=== PATIENT | female | born 1985 | race African-American/Black ===

== ENCOUNTER 2017-02-01 02:12 | Emergency (ER) | payer OTHER ==
[~2017-02-01] VITALS: Ht 157.5 cm; Wt 67.6 kg
[~2017-02-01 02:12] MED LIST: BRINTELLIX10 MG PO; BRINTELLIX20 MG PO; FOLIC ACID1 MG PO; NOHOMEMEDICATIONS; NORCO 5-325 TA1 EACH PO; OXYCODONE HCL 55 MG PO; OXYCODONE-ACET1 EACH PO; PERCOCET 5-3251 EACH PO; PERCOCET PO; WELLBUTRIN SR100 MG PO; ZOFRAN ODT4 MG PO
[2017-02-01 02:41] LABS: URINE BILIRUBIN NEGATIVE (Negative); URINE BLOOD 2+ (Negative); URINE COLOR YELLOW; URINE GLUCOSE-RANDOM* NEGATIVE (Negative); URINE KETONES NEGATIVE (Negative); URINE LEUKOCYTES-REFLEX NEGATIVE (Negative); URINE PROTEIN (DIPSTICK) NEGATIVE (Negative); URINE SPECIFIC GRAVITY 1.015 (1.003-1.035); URINE UROBILINOGEN 0.2 E.U./dl (0.2-1.0)
[2017-02-01 02:54] LABS: HEMATOCRIT 32.4 % (37.0-47.0); HEMOGLOBIN 11.3 gm/dL (12.0-15.0); MCH 31.9 pg (26.0-34.0); MCV 91.1 fL (80.0-100.0); PLATELET COUNT 202 thou/uL (150-400); RBC 3.55 mil/uL (4.20-5.00); RDW 16.5 % (10.5-14.5); WBC 15.2 thou/uL (4.0-11.0)
[2017-02-01 02:54] LABS: SQUAMOUS 4-10 Moderate /LPF (0-3)
[2017-02-01 02:55] LABS: CASTS None Seen /LPF (None Seen); CRYSTALS None Seen /LPF (None Seen)
[2017-02-01 02:56] LABS: URINE RBC 0-2 Rare /HPF (0-2); URINE WBC-REFLEX 0-5 Rare /HPF (0-5)
[2017-02-01 02:58] LABS: MANUAL DIFF YES
[2017-02-01 03:03] LABS: CALCIUM 9.3 mg/dL (8.5-10.1); POTASSIUM 3.4 mmol/L (3.5-5.1)
[2017-02-01 03:05] LABS: ABSOLUTE RETIC COUNT 0.2648 10^6/uL; OBSERVED RETIC COUNT 7.43 % (0.6-2.6)
[2017-02-01 03:07] LABS: ALBUMIN 4.2 g/dL (3.4-5.0); TOTAL BILIRUBIN 2.2 mg/dL (<0.1-1.0); TOTAL PROTEIN 7.5 g/dL (6.4-8.2)
[2017-02-01 03:23] LABS: ABSOLUTE NEUTROPHILS 14.1 thou/uL (1.4-8.2); ANISOCYTOSIS 1+; POLYCHROMASIA 1+; TARGET CELLS 2+; TOTAL CELL COUNT 100
[2017-02-01 03:24] LABS: MACROCYTES 1+
[2017-02-01] MEDS ORDERED: ZOFRAN ODT4 MG PO (04:12)
[2017-02-01] MEDS ORDERED: PERCOCET 5-3251 EACH PO (04:12)
== END 2017-02-01 04:38 | disposition home or self-care (01) ==
LOC: ER 02:12
PROVIDERS: Emergency Medicine
DX: R11.2 Nausea with vomiting, unspecified (principal); R19.7 Diarrhea, unspecified; D57.00 Hb-SS disease with crisis, unspecified; Z90.49 Acquired absence of other specified parts of digestive tract

== ENCOUNTER 2017-07-07 01:28 | Emergency (ER) | payer OTHER ==
[~2017-07-07] VITALS: Ht 157.5 cm; Wt 67.1 kg
--- NOTE | ~2017-07-07 | EKG ---
[address] [address] ELECTROCARDIOGRAM REPORT Name: EUGENIA ENGLE Room #: [facility]#: [id number] Admission: 07/07/17 Attend Phys: Discharge: 07/07/17 Date of : 85 Report #: [id number] THIS REPORT FOR: //name// [facility] ED Test Date: 2017-07-07 Test Time: 01:51:42 Pat Name: EUGENIA ENGLE Department: Room: Gender: F Corporate Controller: MAXI : 1985 Requested By: Rosibel Page Order Number: [id number] MD: Andrew De Anda Measurements Intervals [place] Rate: 67 P: 45 IL: 127 QRS: -6 QRSD: 86 T: 17 QT: 383 QTc: 405 Interpretive Statements Sinus rhythm Borderline T wave abnormalities Compared to ECG 03/10/2017 15:27:04 No significant changes Electronically Signed On 07-07-2017 17:54:04 CDT by Andrew De Anda [email or web address] <ELECTRONICALLY SIGNED> By: Andrew De Anda MD, [facility] 07/07/17 1754 0151 0151 Andrew De Anda MD, FACC /EPI
[~2017-07-07 01:28] MED LIST changes: +AUGMENTIN 875-1 EACH PO; +FLAGYL500 MG PO; +HYDROCODONE-AP1 EAC6 PO; +PHENERGAN 25 MG25 M1 PO
[2017-07-07 02:07] LABS: ABSOLUTE NEUTROPHILS 7.2 thou/uL (1.4-8.2); BASOPHILS 1.5 % (0.0-2.0); EOSINOPHILS 0.8 % (0.0-3.0); HEMATOCRIT 30.3 % (37.0-47.0); HEMOGLOBIN 10.5 gm/dL (12.0-15.0); LYMPHOCYTES 42.9 % (24.0-44.0); MCH 31.8 pg (26.0-34.0); MCHC 34.6 g/dL (28.0-37.0); MCV 91.8 fL (80.0-100.0); MONOCYTES 5.2 % (1.0-8.0); PLATELET COUNT 278 thou/uL (150-400); POLYS 49.6 % (36.0-66.0); RDW 16.9 % (10.5-14.5); WBC 14.4 thou/uL (4.0-11.0)
[2017-07-07 02:11] LABS: ANION GAP 10 mmol/L (7-16); BUN 8 mg/dL (7-18); CALCIUM 10.1 mg/dL (8.5-10.1); CHLORIDE 106 mmol/L (98-107); CO2 25 mmol/L (21-32); GLUCOSE 112 mg/dL (74-106); POTASSIUM 3.5 mmol/L (3.5-5.1); SODIUM 141 mmol/L (136-145)
[2017-07-07 02:16] LABS: MANUAL DIFF NO
[2017-07-07 02:20] LABS: TROPONIN-I < 0.04 ng/mL (<0.04-0.07)
== END 2017-07-07 03:00 | disposition home or self-care (01) ==
LOC: ER 01:28
PROVIDERS: Emergency Medicine
DX: D57.00 Hb-SS disease with crisis, unspecified (principal); R07.89 Other chest pain; M54.5 Low back pain; F10.99 Alcohol use, unspecified with unspecified alcohol-induced disorder; Z90.49 Acquired absence of other specified parts of digestive tract; Z98.890 Other specified postprocedural states

== ENCOUNTER 2019-07-02 17:03 | Inpatient (IN) | payer OTHER ==
[~2019-07-02] VITALS: Ht 157.5 cm; Wt 69.6 kg
[~2019-07-02 17:03] MED LIST changes: +CLONAZEPAM 0.50.5 M1 PO; +EFFEXOR XR75 MG PO; +IBUPROFEN 600600 M1 PO; +SENNA-DOCUSATE1 EAC1 PO; +WELLBUTRIN 75 M75 M1 PO
[2019-07-02 17:15] VITALS: BP 120/77
[2019-07-02 17:41] LABS: ABSOLUTE RETIC COUNT 0.1445 10^6/uL; HEMATOCRIT 27.1 % (37.0-47.0); HEMOGLOBIN 9.5 gm/dL (12.0-15.0); MCH 31.2 pg (26.0-34.0); MCHC 34.9 g/dL (28.0-37.0); MCV 89.4 fL (80.0-100.0); OBSERVED RETIC COUNT 4.76 % (0.6-2.6); PLATELET COUNT 319 thou/uL (150-400); RBC 3.03 mil/uL (4.20-5.00); RDW 15.8 % (10.5-14.5); WBC 18.2 thou/uL (4.0-11.0)
[2019-07-02 17:46] LABS: CALCIUM 9.6 mg/dL (8.5-10.1); CREATININE 1.1 mg/dL (0.6-1.0); POTASSIUM 3.8 mmol/L (3.5-5.1)
[2019-07-02 17:52] LABS: ALBUMIN 3.7 g/dL (3.4-5.0); TOTAL BILIRUBIN 1.1 mg/dL (<0.1-1.0); TOTAL PROTEIN 7.4 g/dL (6.4-8.2)
[2019-07-02 18:03] LABS: ABSOLUTE NEUTROPHILS 6.6 thou/uL (1.4-8.2); METAMYELOCYTES 4 %; PLATELET ESTIMATE NORMAL
[2019-07-02] MEDS ORDERED: NORCO 10-325 T1 EACH PO (18:43)
[2019-07-02 21:06] VITALS: BP 108/68
[2019-07-02 21:22] VITALS: BP 122/83
[2019-07-02 21:38] VITALS: BP 143/88
--- NOTE | 2019-07-03 00:59 | NUR ---
PT ARRIVED ON UNIT 2129. PT ALERT AND ORIENTED. ADMISSION COMPLETED. VSS. PAIN MEDS GIVEN. DENIES N/V. ORDERS IMPLEMENTED. CALL LIGHT ADN PERSONAL CECY GONZALEZ. WILL CONTINUE POC UNTIL EOS.
[2019-07-03 03:30] VITALS: BP 124/75
[2019-07-03 05:00] LABS: HEMATOCRIT 26.7 % (37.0-47.0); HEMOGLOBIN 9.2 gm/dL (12.0-15.0); MCH 31.2 pg (26.0-34.0); MCHC 34.6 g/dL (28.0-37.0); MCV 90.1 fL (80.0-100.0); RBC 2.96 mil/uL (4.20-5.00); RDW 15.5 % (10.5-14.5); WBC 20.5 thou/uL (4.0-11.0)
[2019-07-03 05:16] LABS: CALCIUM 9.2 mg/dL (8.5-10.1); CREATININE 0.8 mg/dL (0.6-1.0)
[2019-07-03 07:06] VITALS: BP 114/82
--- NOTE | 2019-07-03 08:20 | NUR ---
RECIEVED PT CARE APPROX 0700. A/O. RESTING IN BED. C/O PAIN MANAGED BY MEDS ORDERED- SEE MAR. NO OTHER CONCERNS AT THIS TIME. WILL CONT. TO MONITOR.
--- NOTE | 2019-07-03 11:43 | EKG ---
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 : 1985 Requested By: Axel Burton Order Number: [id number] MD: Jaleel Samayoa Measurements Intervals [place] Rate: 77 P: 41 ID: 132 QRS: -41 QRSD: 90 T: 27 QT: 355 QTc: 402 Interpretive Statements Sinus rhythm Left axis deviation Borderline T abnormalities, inferior leads Baseline wander in lead(s) II,III,aVL,aVF,V2,V3 Compared to ECG 07/07/2017 01:51:42 Left-axis deviation now present T-wave abnormality still present Electronically Signed On 07-03-2019 11:43:22 CDT by Jaleel Samayoa [email or web address] <ELECTRONICALLY SIGNED> By: Jaleel Samayoa MD 07/03/19 1143 1738 1738 Jaleel Samayoa MD /EPI
[2019-07-03 13:33] LABS: URINE BILIRUBIN NEGATIVE (Negative); URINE BLOOD 2+ (Negative); URINE CLARITY CLEAR; URINE COLOR YELLOW; URINE GLUCOSE-RANDOM* NEGATIVE (Negative); URINE KETONES NEGATIVE (Negative); URINE LEUKOCYTES-REFLEX NEGATIVE (Negative); URINE NITRITE-REFLEX NEGATIVE (Negative); URINE PROTEIN (DIPSTICK) NEGATIVE (Negative); URINE SPECIFIC GRAVITY <= 1.005 (1.005-1.035); URINE UROBILINOGEN 0.2 E.U./dl (0.2-1.0)
[2019-07-03 13:42] LABS: BACTERIA-REFLEX 1-9 Few /HPF (None Seen); CASTS None Seen /LPF (None Seen); CRYSTALS None Seen /LPF (None Seen); SQUAMOUS 0-3 Few /LPF (0-3); URINE RBC 0-2 Rare /HPF (0-2); URINE WBC-REFLEX None Seen /HPF (0-5)
[2019-07-03 15:45] VITALS: BP 123/81
[2019-07-03 19:45] VITALS: BP 135/93
--- NOTE | 2019-07-03 21:58 | NUR ---
ASSESSMENT COMPLETED. PT IS ALERT AND ORIENTED. SBA TO THE BATHROOM. CONTINUES TO HAVE GENERALISED PAIN.AEBRILE.REPORTS POOR APETITE. DENIES N/V.PLAN TO CONTINUE WITH AGRESSIVE PAIN MGT AND IV HYDRATION. SHE MAKES NEEDS KNOWN. CALL LIGHT WITHIN REACH.WILL CONTINUE WITH POC TILL EOS.
[2019-07-04 05:22] LABS: HEMATOCRIT 23.1 % (37.0-47.0); HEMOGLOBIN 8.1 gm/dL (12.0-15.0); MCH 31.5 pg (26.0-34.0); RBC 2.57 mil/uL (4.20-5.00); RDW 16.3 % (10.5-14.5); WBC 17.3 thou/uL (4.0-11.0)
[2019-07-04 05:30] VITALS: BP 128/91
[2019-07-04 05:51] LABS: % SATURATION 27 % (20-39); IRON 51 ug/dL (50-170); TIBC 190 ug/dL (250-450)
--- NOTE | 2019-07-04 07:49 | HC ---
[facility] [place] [address] CONSULTATION Name: ONIELEUGENIA Abbey Room #: 422-P ADM IN M.R.#: [id number] Admission: 07/02/19 Attend Phys: Peggy Kelly Discharge: Date of : 85 Report #: [id number] THIS REPORT FOR: //name// CC: Nayeli Nur MD DATE OF SERVICE: 07/03/2019 REQUESTING PHYSICIAN: Vladimir Castaneda MD REASON FOR CONSULTATION: Sickle cell. HISTORY OF PRESENT ILLNESS: The patient is a 33-year-old -[place]est[place] female who I have known for probably at least 3-4 years, who has a history of sickle cell disease. She gets admitted to the hospital about twice a year. About 3 or 4 days ago, she had been over at [facility] with a sore throat, was found to have strep throat, was given antibiotic. It was slightly better, but the last day or two she has been having progressive diffuse pains consistent with her sickle cell. Here in the hospital, her retic count is not much higher than usual, usually when she is having a sickle crisis, up around 200-300, at this time it is only around 144 and also her total bilirubin is up a little bit higher than normal, but usually when she has a sickle cell, it is up around 2 or 3, at this time it is about 1.1. Hemoglobin is 9.2. White count 20.5, which is slightly high for her. Platelets are 299. Rest of her electrolytes are unremarkable. The patient has mild headache, does feel that hydrocodone disagrees with her. Bowels have been a little bit slow. No skin rash. No dysuria. Rest of family has been healthy. 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 She had been in [employer]. Now, she says she is studying business. Nonsmoker, no significant alcohol. I do not believe she has done any street drugs. MEDICATIONS: At home, I believe, had included oxycodone, ibuprofen, Zofran when needed, sennosides and also Wellbutrin 75 mg daily. Current medications include Lovenox 40 subcutaneously; folic acid 400 mcg daily; oxycodone 1 for mild pain, 2 for more moderate pain; ceftriaxone 2 g daily; Senokot-S daily; Zofran p.r.n.; lorazepam p.r.n., promethazine p.r.n., hydromorphone p.r.n.; IV fluids 1000 mL per 8 hours. PAST HISTORY: As mentioned, is notable for the sickle cell. Also, history of cholecystectomy and appendectomy. FAMILY HISTORY: Mother from complications of sickle cell. She has a [facility] [address] [place] [address] CONSULTATION Name: EUGENIA ENGLE Abbey Room #: 422-P [facility] IN M.R.#: [id number] Admission: 07/02/19 Attend Phys: Peggy Kelly Discharge: Date of : 85 Report #: [id number] brother and sister. I do not believe she has children. PHYSICAL EXAMINATION: GENERAL: The patient appears her stated age. VITAL SIGNS: Height is 5 feet 2 inches, which is 157.5 cm. Weight is 153.4 pounds, which is 69.6 kilograms. She has 99.1 temperature orally, which is slightly elevated. Pulse is 107, blood pressure 114/82, O2 sat 98%, respirations 18. MOOD: She is alert and pleasant, though somewhat quiet. LUNGS: Appear to be clear. HEART: Regular rate. HEENT: Oropharynx perhaps slightly red. LYMPHATICS: No enlarged lymph nodes in the supraclavicular, cervical, axillary, inguinal or epidural region. ABDOMEN: Soft, without masses. EXTREMITIES: Without clubbing, cyanosis or edema. ASSESSMENT AND PLAN: 1. Sickle cell pain and crisis reported by the patient. Lab tests do not suggest a strong or severe crisis and does not appear to have any acute chest syndrome or aplastic crisis. Agree with use of fluids and cautious opioids. The patient in the past has not had enough crisis per year to suggest Hydrea. She does take folic acid, did mention the possibility of starting L-glutamine as an outpatient should be around 0.3 g/kg per dose b.i.d., which should be around 20-30 g b.i.d., Discussed with the patient. 2. Health maintenance. Agree with Lovenox. We will also check iron and vitamin D level. 3. Possible strep throat. Continue ceftriaxone. 4. Anemia, not low enough to transfuse. We will follow with you. <ELECTRONICALLY SIGNED> By: Casa Fang MD 07/04/19 0749 0856 [id number] Casa Fang MD /nt
[2019-07-04 07:50] VITALS: BP 130/90
--- NOTE | 2019-07-04 08:09 | NUR ---
ASSESMENT COMPLETED. VSS. A/O/TEARFUL THIS AM. PAIN PARTIALLY RELIEVED BY MEDS ORDERED. NO NOTED SOA. NO NV. PT RESTING IN BED AT THIS TIME. NO OTHER CONCERNS VOICED. WILL CONT. TO MONITOR.
[2019-07-04 08:21] LABS: ALBUMIN 2.9 g/dL (3.4-5.0); CALCIUM 8.6 mg/dL (8.5-10.1); CREATININE 0.8 mg/dL (0.6-1.0); POTASSIUM 3.6 mmol/L (3.5-5.1); TOTAL BILIRUBIN 1.2 mg/dL (<0.1-1.0); TOTAL PROTEIN 6.9 g/dL (6.4-8.2)
[2019-07-04 08:29] LABS: ABSOLUTE RETIC COUNT 0.1781 10^6/uL; OBSERVED RETIC COUNT 6.89 % (0.6-2.6)
[2019-07-04 16:00] VITALS: BP 125/77
[2019-07-04 19:21] VITALS: BP 118/82
--- NOTE | 2019-07-04 19:25 | NUR ---
NO CHANGE SINCE AM ASSESSIRIA. PAIN MORE CONTROLLED TODAY.
--- NOTE | 2019-07-05 01:30 | NUR ---
ASSUMD PT CARE 1899. PT ALERT AND ORIENTED. REASSESSMENT COMPLETE. VSS. IV DRESSING C/D/I. REPORTS PAIN, SEE [place] ERVIN N/V. SBA TO BATHROOM USING WALKER, IS PAINFUL ESPECIALLY IN L LEG. WORKING TOWARD POC. CALL LIGHT AND PERSONAL BELONINGS WITHIN REACH. FAMILY AT BEDSIDE. WILL CONTINUE POC UNTIL EOS.
[2019-07-05 04:23] VITALS: BP 117/70
[2019-07-05 05:54] LABS: ABSOLUTE RETIC COUNT 0.1763 10^6/uL; HEMATOCRIT 22.4 % (37.0-47.0); HEMOGLOBIN 7.6 gm/dL (12.0-15.0); MCH 30.4 pg (26.0-34.0); MCHC 33.8 g/dL (28.0-37.0); OBSERVED RETIC COUNT 7.1 % (0.6-2.6); RBC 2.48 mil/uL (4.20-5.00); RDW 16.2 % (10.5-14.5); WBC 16.9 thou/uL (4.0-11.0)
[2019-07-05 07:47] VITALS: BP 116/67
--- NOTE | 2019-07-05 15:13 | NUR ---
PT ADMITTED RELATED TO GENERALIZED PAIN. CM REVIEWED CHART AND SPOKE WITH CARE TEAM. PT IS A&O X4. CM ROLE INTRODUCED. PT INDICATED SHE LIVES IN A HOUSE WITH HER SON WITH NO STEPS TO ENTER AND NO STEPS INSIDE. 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 PT INDICATED SHE PLANS TO RETURN HOME ONCE MEDICALLY STABLE. CM TO FOLLOW INDICATED WITH DC PLANNING.
[2019-07-05 16:52] VITALS: BP 102/65
[2019-07-05 19:43] VITALS: BP 123/80
--- NOTE | 2019-07-06 05:54 | NUR ---
ASSUMED CARE AROUND 1899. AXOX4. PERSISTENT L SIDED GENERALIZED PAIN. MEDICATED PER MD ORDER. NO S/S ACUTE DISTRESS NOTED OR REPORTED AT THIS TIME. WILL CONT TO MONITOR FOR ANY CHANGES IN CONDITION.
[2019-07-06 08:24] VITALS: BP 124/88
[2019-07-06] MEDS ORDERED: CEFUROXIME250 MG PO (08:26)
[2019-07-06] MEDS ORDERED: PERCOCET 5-3251 EACH PO (08:26)
[2019-07-06 11:48] VITALS: BP 124/88
--- NOTE | 2019-07-06 12:27 | NUR ---
DC PRDERS RECEIVED. DC INSTRUCTIONS, F/U APPOINT AND SCRIPTS REVIEWED WITH PT. IV REMOVED FROM R AC. VOLUNTEER ESCORTED PT TO MAIN ENTRANCE.
== END 2019-07-06 17:33 | disposition home or self-care (01) | DRG 811 ==
LOC: ER 17:03 → 4E 20:56 → EROBS 20:56 → 4E 21:32 → ENTRNSPT 07-06 12:25 → EDTRNSPTSTS 07-06 12:26 → 4E 07-06 17:33
PROVIDERS: Internal Medicine Hematology & Oncology; Nurse Practitioner; Physician Assistant; ADMIT Hospitalist
DX: D57.00 Hb-SS disease with crisis, unspecified (principal); N17.0 Acute kidney failure with tubular necrosis; R30.0 Dysuria; Z90.49 Acquired absence of other specified parts of digestive tract; Z83.2 Family history of diseases of the blood and blood-forming organs and certain disorders involving the immune mechanism; Z79.899 Other long term (current) drug therapy
CPT/HCPCS: 10084

== ENCOUNTER 2019-11-15 11:26 | Emergency (ER) | payer OTHER ==
[~2019-11-15] VITALS: Ht 157.5 cm; Wt 65.8 kg
[~2019-11-15 11:26] MED LIST changes: +CEFUROXIME250 MG PO; +NORCO 10-325 T1 EACH PO
[2019-11-15 11:45] LABS: URINE BILIRUBIN NEGATIVE (Negative); URINE BLOOD 1+ (Negative); URINE CLARITY CLEAR; URINE COLOR YELLOW; URINE GLUCOSE-RANDOM* NEGATIVE (Negative); URINE KETONES NEGATIVE (Negative); URINE LEUKOCYTES-REFLEX NEGATIVE (Negative); URINE NITRITE-REFLEX NEGATIVE (Negative); URINE PROTEIN (DIPSTICK) NEGATIVE (Negative); URINE SPECIFIC GRAVITY 1.025 (1.005-1.035); URINE UROBILINOGEN 0.2 E.U./dl (0.2-1.0)
[2019-11-15 11:54] LABS: ABSOLUTE NEUTROPHILS 7.5 thou/uL (1.4-8.2); BASOPHILS 0.6 % (0.0-2.0); EOSINOPHILS 0.4 % (0.0-3.0); HEMATOCRIT 32.4 % (37.0-47.0); HEMOGLOBIN 11.1 gm/dL (12.0-15.0); LYMPHOCYTES 33.7 % (24.0-44.0); MCH 32.1 pg (26.0-34.0); MCHC 34.4 g/dL (28.0-37.0); MCV 93.4 fL (80.0-100.0); MONOCYTES 5.9 % (1.0-8.0); PLATELET COUNT 262 thou/uL (150-400); POLYS 59.4 % (36.0-66.0); RBC 3.47 mil/uL (4.20-5.00); RDW 15.5 % (10.5-14.5); WBC 12.7 thou/uL (4.0-11.0)
[2019-11-15 11:57] LABS: BACTERIA-REFLEX 1-9 Few /HPF (None Seen); CASTS None Seen /LPF (None Seen); CRYSTALS None Seen /LPF (None Seen); SQUAMOUS >10 Many /LPF (0-3); URINE RBC None Seen /HPF (0-2); URINE WBC-REFLEX 0-5 Rare /HPF (0-5)
[2019-11-15 12:19] LABS: CALCIUM 10.4 mg/dL (8.5-10.1)
[2019-11-15] MEDS ORDERED: NORCO 5-325 TA1 EAC1 PO (13:49)
[2019-11-15] MEDS ORDERED: IBUPROFEN 800800 M1 PO (13:49)
[2019-11-15] MEDS ORDERED: FLAGYL500 M1 PO (14:00)
[2019-11-15 14:10] VITALS: BP 107/67
== END 2019-11-15 14:28 | disposition home or self-care (01) ==
LOC: ER 11:26
PROVIDERS: Nurse Practitioner Family
DX: N76.0 Acute vaginitis (principal); B96.89 Other specified bacterial agents as the cause of diseases classified elsewhere; N72 Inflammatory disease of cervix uteri; R19.05 Periumbilic swelling, mass or lump; Z90.49 Acquired absence of other specified parts of digestive tract; N83.209 Unspecified ovarian cyst, unspecified side

== ENCOUNTER 2020-01-02 00:38 | Inpatient (IN) | payer OTHER ==
[~2020-01-02] VITALS: Ht 157.5 cm; Wt 68.1 kg
[2020-01-02] VITALS (7 sets, daily range): BP systolic 113–155; BP diastolic 64–111
--- NOTE | ~2020-01-02 | HC ---
[facility] [place] [address] CONSULTATION Name: EUGENIA ENGLE Room #: 356-P ADM IN M.R.#: [id number] Admission: 01/02/20 Attend Phys: Peggy Kelly Discharge: Date of : 85 Report #: [id number] THIS REPORT FOR: cc: [facility] - Clinic physician unknown [facility] - Clinic physician unknown Renetta Calderon MD ~ CC: VIJAYA Kelly DATE OF SERVICE: 01/05/2020 REASON FOR CONSULTATION: Acute kidney injury. REASON FOR PRESENTATION: Sickle cell pain and shortness of breath. HISTORY OF PRESENT ILLNESS: The details of the history were obtained from the medical chart and the patient's father. The patient is currently having major mental status issues and is not able to provide me with the details. The patient was admitted on the with what seems to be sickle cell pain. She was also having major issues with her breathing. She has significant leukocytosis. The patient's creatinine on presentation was within normal range. Specifically, her creatinine was 0.7. She went on for a few days without any labs until today. Creatinine was found to be significantly elevated at 4.7. She had significantly elevated liver enzymes, LDH, albumin. She is currently being followed by Hematology/Oncology service along with the ID service to cover her for potential infectious process. The patient is having major mental issues this morning and is not able to talk to me. She is confused. She appeared very lethargic. She has never been hypotensive. She did not receive nonsteroidal anti-inflammatory medication. CT chest was done without contrast. PAST MEDICAL HISTORY: 1. Sickle cell disease with repeated episodes of hospitalization due to sickle cell crises almost twice a year. 2. Appendectomy. 3. Hernia surgery. FAMILY HISTORY: Mom has sickle cell disease. ALLERGIES: None. MEDICATIONS: 1. Listed amongst her outpatient medications, hydrocodone, and ibuprofen. 2. Currently, she is maintained on azithromycin, folic acid, melatonin, IV fluid. REVIEW OF SYSTEMS: This is obtained from the father as she is not able to [facility] [address] [place] [address] CONSULTATION Name: ONIELEUGENIA Room #: 356-P [facility] IN M.R.#: [id number] Admission: 01/02/20 Attend Phys: Peggy Kelly Discharge: Date of : 85 Report #: [id number] provide me with history. GENERAL: Significant for weakness and lethargy. CARDIOVASCULAR: Significant for shortness of breath and chest pain. PULMONARY: Significant for extreme shortness of breath and cough. GASTROINTESTINAL: No nausea or vomiting. GENITOURINARY: No frequency, no urgency. MUSCULOSKELETAL: Sickle cell pain. PHYSICAL EXAMINATION: GENERAL: Today, she is confused. VITAL SIGNS: Pulse rate is 124. Temperature 36.6, blood pressure is 136/85. HEAD AND NECK: No jugular venous distention, extremely tachypneic with usage of accessory muscles. CARDIOVASCULAR: Tachycardic with no rub. Systolic murmur is present. CHEST: Very limited air entry bilaterally with crackles. ABDOMEN: Soft, nontender. EXTREMITIES: Lower extremities, +2 edema. LABORATORY DATA: Laboratory values reviewed. White blood cell count is 37.9, hemoglobin is 7.1 and platelet is 79. Sodium is 130, potassium is 4.3, BUN 70, and creatinine is 4.7. Elevated AST at 1146, ALT is elevated at 292. Alkaline phosphatase is elevated at 340. LDH is elevated at 4,257. IMAGING: Chest x-ray reviewed. Abdominal ultrasound reviewed. ASSESSMENT/IMPRESSION AND PLAN: 1. Acute kidney injury in a patient with sickle cell disease. 2. Severe ongoing pulmonary issues with what seems to be pneumonitis. 3. Sickle cell anemia. 4. Elevated liver enzyme. 5. Potential acute chest syndrome. 6. This is a rather rapid and severe acute kidney injury with a wide differential diagnosis including acute tubular necrosis, thromboembolic phenomena, sickle cell crises related acute kidney injury. I will discuss further plans with the patient's advanced developer and hospitalist. 7. At this point, the mainstay of treatment is treatment for her sickle cell pain, potential pneumonitis, and sickle cell crisis. 8. Continue IV fluid. 9. Avoid diuresis at this point. 10. Continue to address her ongoing oxygen needs and demands. 11. Will need [place] [address] CONSULTATION Name: EUGENIA ENGLE Room #: 356-P ADM IN M.R.#: [id number] Admission: 01/02/20 Attend Phys: Peggy Kelly Discharge: Date of : 85 Report #: [id number] 12. Given the severity of her disease, she will likely need to be transferred to a tertiary care center. By: 2 0833 Renetta Calderon MD /nt
[~2020-01-02 00:38] MED LIST changes: +FLAGYL500 M1 PO; +IBUPROFEN 800800 M1 PO; +NORCO 5-325 TA1 EAC1 PO
[2020-01-02 01:09] LABS: URINE BILIRUBIN NEGATIVE (Negative); URINE BLOOD NEGATIVE (Negative); URINE CLARITY CLEAR; URINE COLOR YELLOW; URINE GLUCOSE-RANDOM* NEGATIVE (Negative); URINE KETONES NEGATIVE (Negative); URINE LEUKOCYTES-REFLEX NEGATIVE (Negative); URINE NITRITE-REFLEX NEGATIVE (Negative); URINE PROTEIN (DIPSTICK) NEGATIVE (Negative)
[2020-01-02 01:11] LABS: HEMATOCRIT 28.9 % (37.0-47.0); MCH 32.3 pg (26.0-34.0); MCHC 34.4 g/dL (28.0-37.0); PLATELET COUNT 262 thou/uL (150-400); RBC 3.08 mil/uL (4.20-5.00); RDW 15.7 % (10.5-14.5); WBC 18.9 thou/uL (4.0-11.0)
[2020-01-02 01:14] LABS: ABSOLUTE RETIC COUNT 0.1745 10^6/uL; OBSERVED RETIC COUNT 5.74 % (0.6-2.6)
[2020-01-02 01:23] LABS: CALCIUM 9.2 mg/dL (8.5-10.1); CREATININE 0.7 mg/dL (0.6-1.0)
[2020-01-02 01:28] LABS: TOTAL BILIRUBIN 1.5 mg/dL (<0.1-1.0); TOTAL PROTEIN 7.8 g/dL (6.4-8.2)
[2020-01-02 01:29] LABS: POTASSIUM 3.7 mmol/L (3.5-5.1)
[2020-01-02 01:34] LABS: ABSOLUTE NEUTROPHILS 5.7 thou/uL (1.4-8.2); METAMYELOCYTES 1 %
[2020-01-02 01:35] LABS: POIKILOCYTOSIS 1+; POLYCHROMASIA 2+; TARGET CELLS 2+
--- NOTE | 2020-01-02 02:57 | NUR ---
FIRST ATTEMPT AT REPORT. TOM IS SUPPOSED TO CALL RIGHT BACK
--- NOTE | 2020-01-02 06:49 | NUR ---
Pt arrived from the ER at about 0330. pt a&ox4. pt had recieved iv pain med right before she was sent up, but she came up c/o of excrotiating pain that wasn't relieved with the med. PAYABLE MANAGER Lilibeth went in and saw pt and ordered more pain meds. meds given with partial relief. abx and ivf started. urine sample collected and sent to lab, awaiting results. v/s stable. no s/s of distress. will report off to day shift
--- NOTE | 2020-01-02 16:55 | NUR ---
met with patient who is groggy from pain medication. Patient lives with child in home. She has health insurance. 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 Casemgt following for dc needs.
--- NOTE | 2020-01-02 19:27 | NUR ---
O2 sat dropped to 70% on room air, 2L nasal cannual administrated, O2 back to normal. Dr. Kelly reported. NS discontinued, cxy stat order given by Dr. Hester. Night nurse is aware.
--- NOTE | 2020-01-03 02:36 | NUR ---
PT IS A/O X4.PT C/O PAIN RATING 9 TO 10/10.PAIN IS BEING MANAGED WITH HYDROMORPHONE Q2H WITH LITTLE OR NO RELIEF.PT IS UP TO BSC WITH ASSIST X1.PT IS ON 2L OF O2 NASAL CANULA.PT IS PENDING SPUTUM COLLECTION FOR SPUTUM CULTURE.WILL CONTINUE TO MONITOR POC
[2020-01-03 05:58] LABS: ABSOLUTE RETIC COUNT 0.1978 10^6/uL; OBSERVED RETIC COUNT 7.85 % (0.6-2.6)
[2020-01-03 06:00] LABS: HEMATOCRIT 22.9 % (37.0-47.0); MCHC 34.8 g/dL (28.0-37.0); RBC 2.48 mil/uL (4.20-5.00); RDW 17.3 % (10.5-14.5); WBC 32.9 thou/uL (4.0-11.0)
[2020-01-03 06:08] LABS: HEMOGLOBIN 7.9 gm/dL (12.0-15.0)
[2020-01-03 06:34] LABS: ALBUMIN 3.5 g/dL (3.4-5.0); DIRECT BILIRUBIN 0.3 mg/dL (<0.1-0.2); TOTAL PROTEIN 7.4 g/dL (6.4-8.2)
--- NOTE | 2020-01-03 07:12 | HC ---
[facility] [place] [address] CONSULTATION Name: EUGENIA ENGLE Room #: 456-P ADM IN M.R.#: [id number] Admission: 01/02/20 Attend Phys: Peggy Kelly Discharge: Date of : 85 Report #: [id number] THIS REPORT FOR: cc: [facility] - Clinic physician unknown [facility] - Clinic physician unknown Casa Fang MD ~ CC: Dr. Nayeli Eisenberg [facility] unknown Peggy Kelly MD DATE OF SERVICE: 01/02/2020 REASON FOR CONSULTATION: History of sickle cell disease. HISTORY OF PRESENT ILLNESS: The patient is a very pleasant 34-year-old female who I had last seen in the hospital in June. I do not think I had seen her in the clinic since then. She has history of sickle cell disease. She usually gets admitted to the hospital, maybe about twice a year. She had been doing well, but about a week ago developed a cough and it was mild and went to [facility] ER. They did not suggest any specific medications. Unfortunately, she has recently been running a fever. She says to 102 or slightly higher. Also, greenish phlegm. Denies any headache, mouth sores, sinus drainage, spitting up any blood. Also, during the same respiratory illness began having more pain. Usually her sickle pain is at arms. This was in arms, legs, back, multiple places. She does not feel extremely short of breath. She is a little bit nauseous she thinks maybe from some pain medicines. Prior to the admission, bowels were moving, maybe had a little bit of dysuria last week that had been cleared. No skin rashes. No bug bites, no one else sick around her. PAST MEDICAL HISTORY: Notable for the sickle trait, history of cholecystectomy and appendectomy in the past. 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 I do not think she is in school this semester. Nonsmoker, no significant alcohol, no street drugs. FAMILY HISTORY: Mother from complications of sickle cell, has a brother and sister. I do not believe she has any children. MEDICATIONS: At this time in the hospital currently include azithromycin IV, ceftriaxone IV, Lovenox 40 mg at bedtime. I added folic acid 1 mg daily. She has p.r.n.'s for hydromorphone and hydrocodone and melatonin and Benadryl and did receive Toradol in the ER. PHYSICAL EXAMINATION: [facility] [address] [place] [address] CONSULTATION Name: EUGENIA ENGLE Room #: 456-P [facility] IN [facility]#: [id number] Admission: 01/02/20 Attend Phys: Peggy Kelly Discharge: Date of : 85 Report #: [id number] GENERAL: The patient appears her stated age. Her mood is alert and pleasant, though slightly anxious. VITAL SIGNS: Height is 5 feet 2, 157.5 cm, weight 150 pounds or 68.1 kilograms. Here, she has been afebrile. Current temperature 97.8, pulse 66, respirations 12, blood pressure 142/97, O2 sat 98%. She appears slightly stressed by having pain that seems to be all over. NEUROLOGIC: Face is symmetrical, moving all extremities. Speech and thought pattern normal. LYMPHATICS: No enlarged lymph nodes in the supraclavicular, cervical, axillary or inguinal region. ABDOMEN: Soft, without masses. Slightly obese. EXTREMITIES: Without clubbing or cyanosis. SKIN: Notable for several tattoos. No unusual ecchymosis. LAB: Notable for a total bili of about 1.5, which is a little bit above usual. Note that during some of her crisis she has been up in the 2.2-2.4 range. Transaminases normal. LDH not drawn, but will be drawn. Iron panel back in June had been unremarkable. White count this admit 18.9, which is a little bit higher than her baseline around 12. Hemoglobin 10. Note that in the past she has ran between 7.6 and up to 11.3. Usually hangs around 8 or 9. MCV has been stable, usually around 90-94; platelets 262, which she usually runs between 218 and 319. Did have 1 metamyelocyte this time suggesting a stressed bone marrow. Absolute retic count at this time is 0.174. Note that she has been as high as 0.29, 0.8, and 0.3 equivalent in the past. Radiologically, she had a chest x-ray, which shows patchy opacities in the right middle lobe and right lower lobe consistent with developing pneumonia and mild vascular congestion. ASSESSMENT AND PLAN: 1. Sickle cell anemia and sickle cell crisis, total bilirubin and reticulocyte count slightly up and also the patient has pneumonia on x-ray. We will add folate. Continue fluids, analgesia. We will also add oxygen. Would consider l-glutamine as an outpatient 20 g b.i.d. in liquid. ____ aplastic crisis or acute chest syndrome. Would consider flu vaccine and also Haemophilus influenza and pneumococcal vaccines sometime in the near future. 2. Sickle pain, may need to consider slightly higher doses of opiates. Continue oxygen and air ____. 3. Bronchitis, early pneumonia. Continue Rocephin and Zithromax. Cultures pending. 4. Health maintenance. Agree with Lovenox and encourage ambulation. We will follow with you. <ELECTRONICALLY SIGNED> By: Casa Fang MD 01/03/20 0712 0756 0913 Casa Fang MD /nt
[2020-01-03 08:34] VITALS: BP 110/79
[2020-01-03 15:38] VITALS: BP 117/87
[2020-01-03 19:18] VITALS: BP 110/82
--- NOTE | 2020-01-03 21:45 | NUR ---
PATIENT IS SEDATED BUT ORIENTED AND BEING MANAGED WELL BY IV PAIN MED. SHE HAS BEEN ENCOURAGED TO TAKE PO INTAKE. FAMILY AT BEDSIDE THE ENTIRE DAY AND RESERVATION MANAGER AND CALLED SEVERAL TIMES TO GET STATUS OF PATIENT. PATIENT CONTINUES ON O2 NC.
[2020-01-04 00:16] VITALS: BP 119/82
[2020-01-04 04:30] VITALS: BP 121/84
--- NOTE | 2020-01-04 04:36 | NUR ---
ASSUMED PT CARE AROUND 1930. NOTED WITH TACHYCARDIA AND DECREASED PULSE O2. PLACED ON 5LMP O2 AND ABNORMAL VS REPORTED TO MYESHA BARNARD HEALTH AND SAFETY ADVISOR FOR . NEW ORDER FOR EKG RECIEVED AND EKG REVEALED SINUS TACHYCARDIA. NNO AFTER EKG. PT UNABLE TO VOID THIS AM. TAKEN TO BSC X3 IN 60MINS, UNABLE TO VOID. BALDDER SCAN REVEALED URINE RESIDUAL AT 347. CALLED MYESHA BARNARD AND OBTAINED AN ORDER TO STRAIGHT CATH PT ONETIME AND REPEAT BALDDER SCAN IN 6HR. 400CC OUT WITH STRAIGHT CATH. WILL CONT TO MONITOR FOR ANY CHANGES IN CONDITION.
[2020-01-04 06:30] LABS: MCV 92.7 fL (80.0-100.0); RDW 17.3 % (10.5-14.5)
[2020-01-04 06:34] LABS: ABSOLUTE RETIC COUNT 0.1532 10^6/uL; HEMOGLOBIN 6.6 gm/dL (12.0-15.0); MCHC 33.5 g/dL (28.0-37.0); OBSERVED RETIC COUNT 7.24 % (0.6-2.6); RBC 2.12 mil/uL (4.20-5.00)
[2020-01-04 06:37] LABS: HEMATOCRIT 19.6 % (37.0-47.0); WBC 48.9 thou/uL (4.0-11.0)
[2020-01-04 06:55] LABS: ALBUMIN 3.2 g/dL (3.4-5.0); DIRECT BILIRUBIN 0.5 mg/dL (<0.1-0.2); TOTAL PROTEIN 6.9 g/dL (6.4-8.2)
[2020-01-04 07:36] VITALS: BP 136/104
--- NOTE | 2020-01-04 08:31 | EKG ---
[facility] [place] [address] ELECTROCARDIOGRAM REPORT Name: EUGENIA ENGLE Room #: 356- ADM IN M.R.#: [id number] Admission: 01/02/20 Attend Phys: Peggy Kelly Discharge: Date of : 85 Report #: [id number] THIS REPORT FOR: cc: [facility] - Clinic physician unknown [facility] - Clinic physician unknown Jaleel Samayoa MD ~ THIS REPORT FOR: //name// [facility] Test Date: 2020-01-03 Test Time: 21:45:44 Pat Name: EUGENIA ENGLE Department: Room: [facility] Gender: F 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: 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 BANKS : 1985 Requested By: Rehana Ann Order Number: [id number] MD: Jaleel Samayoa Measurements Intervals [place] Rate: 126 P: 55 LA: 119 QRS: 208 QRSD: 90 T: 9 QT: 291 QTc: 422 Interpretive Statements Sinus tachycardia Ventricular premature complex Right axis deviation Low voltage, precordial leads Compared to ECG 07/02/2019 17:38:25 Electronically Signed On 01-04-2020 8:30:54 SACK DEPARTMENT SUPERVISOR by Jaleel Samayoa [email or web address] <ELECTRONICALLY SIGNED> By: Jaleel Samayoa MD 01/04/20 0830 44 44 Jaleel Samayoa MD /EPI
--- NOTE | 2020-01-04 10:46 | NUR ---
PATIENT TRANSFER FROM AT 0720. ALERT TO SELF, LETHARGIC. ON 5L/NC. HR 115/M. MULTI CONSULTS CALLED. BLADDER SCAN 81ML. WILL TRANSFUTION ONE UNIT RBC. IVTEAM INSERT PICC LINE NOW.
[2020-01-04 12:59] VITALS: BP 118/97; BP 129/94
--- NOTE | 2020-01-04 13:46 | NUR ---
CONSULTED TO PLACE A PICC FOR A PATIENT NEEDING ADDITIONAL ACCES. ORDER AND CONSENT NOTED. THE PROCEDURE WELL BENIFITS AND RISKS DISCUSSED WITH THE PATIENT AND SHE VERBALIZED UNDERSTANDING. THE RIGHT UPPER ARM BRACHIAL WAS WIDLEY PATENT. A #4F DOUBLE LUMEN POWER PICC WAS PLACED PER HOSPITAL POLICY AFTER A BEDSIDE TIMEOUT WAS COMPLETED. LINE WAS TRIMMED TO 36CM AND ADVANCED WITHOUT DIFFICULTY. A STAT CHEST XRAY NOTED AND LINE WITHDREW 2 CM. 2ND XRAY LINE WAS CONFIRMED AT THE [facility]. LINE RELEASED FOR USE
[2020-01-04 15:40] VITALS: BP 118/97
--- NOTE | 2020-01-04 18:37 | NUR ---
Pt now on 3W. She is getting blood today and ct chest. Pain mngt ongoing. Will continue to follow should dc needs arise.
[2020-01-04 19:11] VITALS: BP 130/99
[2020-01-05 00:38] VITALS: BP 149/92
[2020-01-05 01:37] VITALS: BP 129/70
[2020-01-05 02:20] LABS: HEMATOCRIT 21.3 % (37.0-47.0); HEMOGLOBIN 7.1 gm/dL (12.0-15.0); MCH 30.6 pg (26.0-34.0); MCHC 33.5 g/dL (28.0-37.0); MCV 91.5 fL (80.0-100.0); OBSERVED RETIC COUNT 3.61 % (0.6-2.6); RBC 2.33 mil/uL (4.20-5.00); RDW 17.2 % (10.5-14.5); WBC 37.9 thou/uL (4.0-11.0)
[2020-01-05 02:31] LABS: INR 1.1; PROTIME 11.4 Seconds (9.3-11.4)
[2020-01-05 02:42] LABS: BE(vivo) -8.8 mmol/L (-2 to +3); HCO3 14.7 mmol/L (22.0-26.0); PCO2 23.9 mmHg (35.0-45.0); PO2 68.7 mmHg (80.0-100.0); pH 7.408 (7.360-7.450); sO2 94.3 % (92.0-98.0)
[2020-01-05 02:50] LABS: ALBUMIN 2.7 g/dL (3.4-5.0); CALCIUM 7.5 mg/dL (8.5-10.1); CREATININE 4.7 mg/dL (0.6-1.0); DIRECT BILIRUBIN 0.4 mg/dL (<0.1-0.2); POTASSIUM 4.3 mmol/L (3.5-5.1); TOTAL BILIRUBIN 1.6 mg/dL (<0.1-1.0)
--- NOTE | 2020-01-05 03:18 | NUR ---
AWAKE, NODS HEAD TO QUESTIONING, CONTINUES TO MOANIN APPARENT DISCOMFORT. LUNGS TIGHT, AND DIMINISHED IN ALL KENNEDY BILATERALLY. STARTED SHIFT ON 3.5LNC, INCREASED TO 5LNC, AND THEN NON-REBREATHER DUE TO RESULTS OF ABG. REMAINS TACHYCARDIC, AND TACHYPNEIC. Dom BARNARD IN TO SEE PATIENT AND REVIEWING CURRENT MORNING LABS. ALL CRITICAL RESULTS WITH REGARDS TO ABG GIVEN TO WADE. BECKER INSERTED DUE TO CONTINUED RETENTION OF URINE >400ML. LIGHT YELLOW URINE DRAINING TO DEPENDENT DRAINAGE BAG. FAMILY IS AT BEDSIDE, AND HAS BEEN INQUIRING ABOUT MEDICATION FOR PAIN, EDUCATED ON SPACING OUT PAIN MEDICINE NOT TO OVERMEDICATE, AND MASK OTHER SYMPTOMS OF ILLNESS. ALL PRESENT FAMILY VERBALIZED UNDERSTANDING. AWAITING ORDERS FOR POSSIBLE TRANSFER TO HIGHER LEVEL OF CARE.
--- NOTE | 2020-01-05 03:45 | NUR ---
ORDERS TO TRANSFER TO ICU-242.
[2020-01-05 04:34] VITALS: BP 148/99
[2020-01-05 07:47] VITALS: BP 136/85
[2020-01-05 11:15] LABS: HEMATOCRIT 20.5 % (37.0-47.0); HEMOGLOBIN 6.9 gm/dL (12.0-15.0); MCH 31.2 pg (26.0-34.0); MCHC 33.7 g/dL (28.0-37.0); MCV 92.4 fL (80.0-100.0); RBC 2.22 mil/uL (4.20-5.00); RDW 16.9 % (10.5-14.5)
[2020-01-05 11:21] LABS: WBC 40.8 thou/uL (4.0-11.0)
[2020-01-05 13:10] VITALS: BP 120/86
--- NOTE | 2020-01-05 13:12 | NUR ---
[facility] CALLED, THEY ACCEPTED PT ROOM NUMBER IS [id number]. REPORT CALLED TO KIERA HOWARD. FAMILY NOTIFIED, UNCLE AT BEDSIDE. AUNT, ADRIANNE AND GRANDMOTHER, RONI CALLED. ALL BELONGINGS TAKEN HOME BY AUNT ADRIANNE PRIOR TO HER LEAVING THIS MORNING. CELL PHONE, CELL PHONE PEDIATRIC SPEECH THERAPIST, CLOTHES AND FORD TAKEN. PT CHART COPIED. VSS.
--- NOTE | 2020-01-05 15:08 | NUR ---
PT WAS PICKED UP BY EMS AT 1410. UNCLE AT BEDSIDE. GRANDMOTHER AND AUNT NOITIFIED.
--- NOTE | 2020-01-05 15:40 | NUR ---
DISCHARGE NOTE: SW reviewed chart and spoke with nursing and attending physician. Request for pt to transfer to [facility] for higher level of care--exchange transfusion. [facility] transfer center contacted. Pt accepted in transfer. Dr. Virgil Blackwell is accepting physician. Pt to be admitted to room# 2626. RIVER met with pt and her uncle at bedside to provide update. Pt and family agreeable with transfer. EMTALA form signed. Ambulance scheduled via [facility] for next available. Chart copy completed. Radiology images uploaded to the [place] to [facility]. Nursing called report. No additional SW needs identified at this time, but is available to assist should needs arise.
--- NOTE | 2020-01-06 21:01 | HC ---
[facility] [place] [address] CONSULTATION Name: EUGENIA ENGLE Room #: 356-[facility] IN ..#: [id number] Admission: 01/02/20 Attend Phys: Peggy Kelly Discharge: 01/05/20 Date of : 85 Report #: [id number] THIS REPORT FOR: cc: [facility] - Clinic physician unknown [facility] - Clinic physician unknown Rao Alicia MD ~ CC: VIJAYA unknown Peggy Kelly DATE OF SERVICE: 01/04/2020 INFECTIOUS DISEASE CONSULTATION REASON FOR CONSULTATION: I was asked to evaluate concerning bilateral pneumonia in the setting of sickle cell disease. HISTORY OF PRESENT ILLNESS: This is a 34-year-old with longstanding sickle cell disease, being followed by Dr. Fang from [facility] H[facility]ology. She presented initially a week ago with fever and upper respiratory tract infection symptoms. Other family members had the same. She then returned on 01/02/2020 with increased cough, fever, sputum production along with increased extremity and back pain. Denied any hemoptysis or pleuritic chest pain. She felt like she was having a sickle crisis. She came in for hydration and pain medication. Started on azithromycin and Zosyn after chest x-ray showed basilar infiltrates. She has remained afebrile and hemodynamically stable. She has been receiving pain medication and has had blood transfusion. This evening, she was more somnolent and was not willing or able to give a history. I did discuss with family members at the bedside regarding her presentation. The patient was unable to give any further details of her HPI but she has had no nausea, vomiting or diarrhea. There has been no dysuria or blood in her urine. No travel or other exposures noted. ALLERGIES: None known. MEDICATIONS: As noted on her MAR including the azithromycin and Zosyn. PAST MEDICAL HISTORY: Sickle cell disease, cholecystectomy, appendectomy, hiatal hernia repair, ovarian cyst. FAMILY HISTORY: Sickle cell disease. SOCIAL HISTORY: Nonsmoker, no significant alcohol intake. PHYSICAL EXAMINATION: VITAL SIGNS: She was afebrile, hemodynamically stable. [facility] [address] [place] [address] CONSULTATION Name: EUGENIA ENGLE [place] Room #: 356-[facility] IN ..#: [id number] Admission: 01/02/20 Attend Phys: Peggy Kelly Discharge: 01/05/20 Date of : 85 Report #: [id number] GENERAL: She is sitting up in bed and was moaning. SKIN: Without rash or decubitus. No palpable adenopathy. HEENT: Eyes, without scleral icterus or conjunctivitis. Mouth without mucositis. NECK: Supple. LUNGS: With crackles heard in the bases bilaterally. No consolidation. HEART: Regular, without murmur, gallop or rub. ABDOMEN: Soft with tenderness in her upper abdomen. No hepatosplenomegaly or mass appreciated. EXTREMITIES: Without clubbing, cyanosis or edema. She did have tenderness predominantly in her left knee and thigh region. Could not appreciate much effusion. NEUROLOGIC: Cranial nerves were intact. Able to move all extremities. BACK: Spine was nontender. No CVA tenderness. LABORATORY STUDIES: Reviewed. MICROBIOLOGY: Reviewed. CT of the chest and chest x-rays reviewed. Ultrasound of the abdomen reviewed. IMPRESSION: 1. A 34-year-old with sickle cell disease, presents with crisis. 2. Bibasilar infiltrates with community-acquired, etiology of yet to be defined in this setting would include encapsulated organisms and mycoplasma in addition to viral etiologies considering we are in the influenza season. 3. Hepatitis related to drug versus infection versus sickle cell disease. 4. Leukemoid reaction along with anemia and thrombocytopenia. RECOMMENDATIONS: We will continue broad antibiotic coverage and antiviral coverage. Obtain sputum culture, mycoplasma screening and viral respiratory panel. Serial laboratory studies. Continue with hydration and pain control. <ELECTRONICALLY SIGNED> By: Rao Alicia MD 01/06/201 11 2339 Rao Alicia MD /nt
== END 2020-01-05 14:51 | disposition short-term general hospital (02) | DRG 871 ==
LOC: ER 00:38 → 4W 02:34 → EROBS 02:34 → 4W 03:15 → 3W 01-04 07:08
PROVIDERS: Emergency Medicine; Internal Medicine Gastroenterology; Internal Medicine Hematology & Oncology; Nurse Practitioner Family; ADMIT Hospitalist
PROC: 02H633Z Insertion of Infusion Device into Right Atrium, Percutaneous Approach (ICD-10-PCS; principal; 2020-01-04)
PROC: 30233N1 Transfusion of Nonautologous Red Blood Cells into Peripheral Vein, Percutaneous Approach (ICD-10-PCS; principal; 2020-01-04)
DX: A41.9 Sepsis, unspecified organism (principal); D57.01 Hb-SS disease with acute chest syndrome; J18.9 Pneumonia, unspecified organism; D59.3 Hemolytic-uremic syndrome; N17.9 Acute kidney failure, unspecified; J40 Bronchitis, not specified as acute or chronic; K75.9 Inflammatory liver disease, unspecified; D72.823 Leukemoid reaction; D69.6 Thrombocytopenia, unspecified; D72.829 Elevated white blood cell count, unspecified; R74.0 Nonspecific elevation of levels of transaminase and lactic acid dehydrogenase [LDH]; F41.9 Anxiety disorder, unspecified; Z79.899 Other long term (current) drug therapy; Z90.49 Acquired absence of other specified parts of digestive tract; Z83.2 Family history of diseases of the blood and blood-forming organs and certain disorders involving the immune mechanism
CPT/HCPCS: 10040; 10080; 10879; 27000